=== PATIENT | male | born 1990 | race Asian ===

== ENCOUNTER 2020-12-22 12:02 | Inpatient (IN) | payer SELFPAY ==
[2020-12-22 13:13] VITALS: BMI 28.9
[2020-12-22] MEDS ORDERED: METHOCARBAMOL 500 MG TABLET PO PRN (13:34)
[2020-12-22] MEDS ORDERED: MENTHOL/PHENOL 1 EACH UD MM PRN (13:34)
[2020-12-22] MEDS ORDERED: MAG HYDROX/AL HYDROX/SIMETH 30 ML UNIT-DOSE CUP PO PRN (13:34)
[2020-12-22] MEDS ORDERED: MAGNESIUM CITRATE 300 ML BOTTLE PO PRN (13:34)
[2020-12-22] MEDS ORDERED: ONDANSETRON *ODT* 4 MG TABLET SL PRN (13:34)
[2020-12-22] MEDS ORDERED: MAGNESIUM HYDROX 2400MG/30ML ORAL SUSPENSION 30 ML CUP PO PRN (13:34)
[2020-12-22] MEDS ORDERED: ACETAMINOPHEN 325 MG TABLET (FP) PO PRN ×2 (13:34)
[2020-12-22] MEDS ORDERED: IBUPROFEN 400 MG TABLET (FP) PO PRN (13:34)
[2020-12-22] MEDS ORDERED: BISMUTH SUBSALICYLATE 262 MG/15 ML BTL PO PRN (13:34)
[2020-12-22] MEDS ORDERED: diazePAM 5 MG TABLET PO PRN (13:36)
[2020-12-22] MEDS ORDERED: diazePAM 5 MG TABLET PO ONE (13:36)
[2020-12-22] MEDS: BACITRACIN 0.9 GM PACKET TP SCH ×2 (15:15→22:36)
[2020-12-22] MEDS: diazePAM 5 MG TABLET PO SCH ×2 (17:04→22:35)
[2020-12-22] MEDS ORDERED: METOPROLOL TARTRATE 25 MG TABLET (FP) PO ONE (19:53)
[2020-12-22] MEDS: THIAMINE HCL 100 MG TABLET (FP) PO SCH (22:36)
[2020-12-22] MEDS: MELATONIN 5 MG TABLETS PO SCH (22:36)
[2020-12-23] MEDS: diazePAM 5 MG TABLET PO SCH ×4 (05:33→22:02)
[2020-12-23] MEDS: hydrOXYzine PAMOATE 25 MG CAPSULE (FP) PO PRN (05:36)
[2020-12-23] MEDS: BACITRACIN 0.9 GM PACKET TP SCH ×2 (10:04→22:03)
[2020-12-23] MEDS: PRENATAL VITAMINS W/ FOLIC ACID TABLET (FP) PO SCH (10:05)
[2020-12-23 15:32] LABS: BLOOD UREA NITROGEN 11.4 mg/dL (7-18); HEMATOCRIT 41.3 % (35.4-49); HEMOGLOBIN 14.4 GM/dL (11.7-16.9); MCH 33.6 pg (25.7-33.7); MCHC 34.9 g/dl (32.0-35.9); MEAN CELL VOLUME 96.3 fl (80-96); MEAN PLT VOLUME 7.8 fl (7.5-11.1); PLATELET COUNT 201 10^3/uL (134-434); RBC 4.29 M/mm3 (4.00-5.60); RDW 13.5 % (11.9-15.9); WHITE BLOOD COUNT 5.3 K/mm3 (4.0-10.0)
[2020-12-23 15:33] LABS: BILIRUBIN,TOTAL 0.9 mg/dL (0.2-1); CALCIUM 8.8 mg/dL (8.5-10.1)
[2020-12-23 15:34] LABS: TOT PROT 6.6 g/dl (6.4-8.2)
[2020-12-23 15:36] LABS: CREATININE 1.1 mg/dL (0.55-1.3)
[2020-12-23] MEDS: MELATONIN 5 MG TABLETS PO SCH (22:03)
[2020-12-23] MEDS: THIAMINE HCL 100 MG TABLET (FP) PO SCH (22:03)
[2020-12-24] MEDS: diazePAM 5 MG TABLET PO SCH ×3 (05:31→22:24)
[2020-12-24] MEDS: BACITRACIN 0.9 GM PACKET TP SCH ×2 (10:10→22:24)
[2020-12-24] MEDS: PRENATAL VITAMINS W/ FOLIC ACID TABLET (FP) PO SCH (10:11)
[2020-12-24] MEDS: hydrOXYzine PAMOATE 25 MG CAPSULE (FP) PO PRN (17:44)
[2020-12-24] MEDS: MELATONIN 5 MG TABLETS PO SCH (22:24)
[2020-12-24] MEDS: THIAMINE HCL 100 MG TABLET (FP) PO SCH (23:00)
[2020-12-25] MEDS ORDERED: diazePAM 5 MG TABLET PO SCH (06:00)
[2020-12-25 09:07] VITALS: BP 155/96; PULSE 117; TEMP 98
[2020-12-26] MEDS ORDERED: diazePAM 5 MG TABLET PO ONE (06:00)
== END 2020-12-25 10:14 | disposition home or self-care (01) | DRG 775 ==
LOC: YASAS 12:02 → Y6N 14:12 → Y3N 18:13 → Y6N 18:30
PROVIDERS: ADMIT Allergy & Immunology; ATTEND Allergy & Immunology
PROC: HZ2ZZZZ Detoxification Services for Substance Abuse Treatment (ICD-10-PCS; principal; 2020-12-22)
DX: F10.230 Alcohol dependence with withdrawal, uncomplicated (principal); F12.20 Cannabis dependence, uncomplicated; F17.210 Nicotine dependence, cigarettes, uncomplicated
CPT/HCPCS: 36415; 80053; 85027; 86780; C9803; U0003; U0005